=== PATIENT | male | born 1950 | race Caucasian/White ===

== ENCOUNTER → 2021-09-18 13:53 | Outpatient (BNVA) | payer OTHER, SELFPAY | PROVIDERS: Visit Provider Internal Medicine | DX: E79.0 Hyperuricemia without signs of inflammatory arthritis and tophaceous disease (principal); M25.50 Pain in unspecified joint; M45.0 Ankylosing spondylitis of multiple sites in spine; L40.9 Psoriasis, unspecified; Z11.59 Encounter for screening for other viral diseases; Z11.1 Encounter for screening for respiratory tuberculosis; M10.9 Gout, unspecified | CPT/HCPCS: 72202; 73120; 73620; 82607; 84403; 84443; 85651; 86140; 86200; 86480; 86704; 86803; 86812; 87340 ==